=== PATIENT | male | born 1960 | race Caucasian/White ===

== ENCOUNTER 2016-05-18 10:27 | Emergency (ER) | payer OTHER ==
--- NOTE | 2016-05-18 11:32 | PROVIDER DOCUMENTATION ---
HPI-Abdominal Pain/GI Problem - General Chief Complaint: Abdominal Pain Stated Complaint: L Side Abdominal Pain Time Seen by Provider: 05/18/16 10:37 Source: patient Allergies/Adverse Reactions: Patient Allergies Allergy/AdvReac Type Severity Reaction Status Date / Time diphenhydramine HCl * Allergy Mild HIVES Verified 05/18/16 11:03 [From Benadryl] codeine [Codeine] AdvReac Mild NAUSEA Verified 05/18/16 11:03 Home Medications: Home Medication List Medication Instructions Recorded Confirmed Last Taken Type Lisinopril/Hydrochlorothiazide 1 tab PO DAILY 10/20/13 01/25/16 01/25/16 08:00 History [Lisinopril-Hctz 20-25 mg Tab] Omeprazole [Prilosec] 1 cap PO DAILY 11/14/14 01/25/16 01/25/16 08:00 History Potassium Chloride E.r. [Klor-Con] 10 meq PO BID 11/14/14 01/25/16 01/25/16 08: 00 History Tamsulosin [Flomax] 0.4 mg PO QHS 06/24/15 01/25/16 01/24/16 20:00 History Escitalopram [Lexapro] 1 tab PO DAILY 09/11/15 01/25/16 01/25/16 08:00 History Trazodone [Desyrel] 1 tab PO HS 09/11/15 01/25/16 01/24/16 20:00 History ATORVAstatin [Lipitor] 20 mg PO DAILY #120 tablet 11/26/15 01/25/16 01/25/16 08: 00 Rx Aspirin 81 mg PO DAILY #120 chewtab 11/26/15 01/25/16 01/25/16 08:00 Rx Fenofibrate [Tricor] 145 mg PO DAILY #120 tablet 11/26/15 01/25/16 01/25/16 08: 00 Rx Gabapentin [Neurontin] 100 mg PO BID #120 capsule 11/26/15 01/25/16 01/25/16 08: 00 Rx Dicyclomine HCl [Bentyl] 20 mg PO DAILY #30 tablet 01/06/16 01/25/16 01/25/16 08 :00 Rx Cyclobenzaprine [Flexeril] 10 mg PO TID #20 tablet 01/25/16 Unknown Rx Meloxicam [Mobic] 7.5 mg PO DAILY PRN PRN #15 tablet 01/25/16 Unknown Rx Dicyclomine [Bentyl] 10 mg PO 4XDAY #30 capsule 05/18/16 Unknown Rx Ondansetron Odt [Zofran 8Mg Odt] 8 mg PO Q8H PRN PRN #20 tablet 05/18/16 Unknown Rx Promethazine [Phenergan] 25 mg PO Q6H PRN PRN #20 tablet 05/18/16 Unknown Rx - History of Present Illness-ABD Nature of Presenting Problems: 56 y/o WM in the ED with c/o L side pain secondary to hernia. Pt has this pain frequently, states worse when he is active. Denies any new sxs. Reports N/V periodically over last 2 days. Pt has colostomy in LLQ. States has seen Dr. Davidson about one month ago for recheck of colon CA and resection. Pt has had hernia in LLQ for approx. 5 years since colon resection. Asking what he can take for pain. Pt does not appear in acute distress. Review of Systems - Adult - REVIEW OF SYSTEMS - ADULT Constitutional: reports: no symptoms reported. denies: chills, fever Eyes: reports: no symptoms reported. denies: blurred vision, double vision Ears, Nose, Mouth & Throat: reports: no symptoms reported. denies: ear pain, nose pain Cardiovascular: reports: no symptoms reported. denies: chest pain, palpitations Respiratory: reports: no symptoms reported. denies: dyspnea on exertion, shortness of breath Gastrointestinal: reports: see HPI, abdominal pain, nausea, vomiting. denies: constipation, diarrhea Genitourinary: reports: no symptoms reported. denies: dysuria, frequency Musculoskeletal: reports: no symptoms reported. denies: joint pain, joint swelling Integumentary: reports: no symptoms reported. denies: nail changes, rash Neurological: reports: no symptoms reported. denies: numbness, paresthesia Psychiatric: reports: no symptoms reported Endocrine: reports: no symptoms reported. denies: cold intolerance, heat intolerance Hematologic/Lymphatic: reports: no symptoms reported. denies: easy bruising, prolonged bleeding Allergic/Immunologic: reports: no symptoms reported All Other Systems: Reviewed and Negative Past History - Adult - PAST MEDICAL HISTORY-ADULT Review of Records: reports: Nursing Assessment Review, Medications Reviewed Major Childhood Illnesses: reports: denies history Cardiovascular: reports: HTN, hyperlipidemia Respiratory: reports: denies history Gastrointestinal: reports: GERD, other (rectal CA) Genitourinary: reports: kidney disease Musculoskeletal: reports: denies history Neurological: reports: denies history Psychiatric: reports: depression Endocrine/Immune: reports: denies history Other Conditions: reports: denies history Additional History: HTN, GERD, depression, hx of colon ca - PRIOR SURGERIES/PROCEDURES Surgical/Procedure History: reports: bowel surgery (colostomy) - IMMUNIZATION STATUS Childhood Immunizations: See Nurse Assessment Flu Vaccine: See Nurse Assessment - FAMILY HISTORY Family History: reviewed, not pertinent - SOCIAL HISTORY Smoking: quit greater than 1 year Physical Exam-General - PHYSICAL EXAM-ADULT Initial Vital Signs Reviewed: Yes - CONSTITUTIONAL General Appearance: alert, no apparent distress - EYES Eyes: pink conjunctivae - HEAD, EARS, NOSE, MOUTH & THROAT HENMT: normocephalic/atraumatic, moist mucous membranes - NECK Neck: normal inspection - RESPIRATORY Respiratory: lungs clear, normal breath sounds. negative: crackles, rales, rhonchi, stridor, wheezing - CARDIOVASCULAR Cardiovascular: regular rate, rhythm. negative: bradycardia, tachycardia - GASTROINTESTINAL (ABDOMEN) Abdominal Exam: normal bowel sounds, soft, tenderness (mild), hernia (LLQ, lateral to colostomy). negative: distended, guarding, rigid, rebound, McBurney' s point tenderness, Dempsey's sign - MUSCULOSKELETAL Back Exam: normal inspection, no CVA tenderness Extremity: normal gait - SKIN Integumentary: normal color, normal turgor, warm/dry - NEUROLOGIC Neurologic: negative: aphasia - PSYCHIATRIC Psych/Mental Status: normal mood/affect, normal thought content, normal thought process, oriented x 3 Progress - PLAN OF CARE/RESULTS Progress/Plan/Lab Results: Discussed pt with Dr. Banuelos; he agreed with d/c home and did not advise pain medications. Discussed results and f/u with pt. - XRAY 1 XRAY Study: Chest, Abdomen Impression: See EMR Report (No acute disease, per Dr. Arriola) Departure - Departure Time of Disposition Order: 12:15 DIAGNOSIS: Hernia Abdominal pain Qualifiers: Abdominal location: left lower quadrant Qualified Code(s): R10.32 - Left lower quadrant pain Vomiting Qualifiers: Vomiting type: unspecified Vomiting Intractability: non-intractable Nausea presence: unspecified Qualified Code(s): R11.10 - Vomiting, unspecified Disposition: HOME 01 Certified Medical Emergency: Emergent Condition: Stable Additional Instructions: Take medications as directed. Follow up with PCP/specialist for further management. Return if symptoms get worse. ED Follow Up Instructions: You have been treated by a care provider in the Emergency Department. These instructions are being provided to you so you can have an understanding of how to care for yourself upon discharge. Upon discharge from the Emergency Department, you are responsible for making arrangements for follow-up care by a physician of your choice. Take all prescribed medications as directed. Return to the Emergency Department immediately for any new or worsening symptoms. You may call the Physician Referral phone number at [phone] to obtain a list of Physicians who are taking new patients. Prescriptions: Dicyclomine [Bentyl] 10 mg PO 4XDAY #30 capsule Promethazine [Phenergan] 25 mg PO Q6H PRN PRN #20 tablet PRN Reason: Nausea Ondansetron Odt [Zofran 8Mg Odt] 8 mg PO Q8H PRN PRN #20 tablet PRN Reason: Nausea Referrals: None,PCP [Primary Care Provider] - Merlin Molina MD [STAFF PHYSICIAN] - Attestation - Physician/ TAMIKA Attestation Patient care was provided by Advanced Practice Provider:: Yes Advanced Practice Provider:: Yudy Grigsby Advanced Practice Provider documentation review:: The Mid-level provider documentation, treatment plan and medical decision making was reviewed by the physician who agrees with all treatment and medical decision making by the P.
[2016-05-18 11:39] LABS: MANUAL DIFF NEEDED? NO
[2016-05-18 11:39] LABS: URINE CULTURE NEEDED? NO; URINE MICRO REVIEW NEEDED? NO; URINE SOURCE CLEAN CATCH
[2016-05-18 11:41] LABS: EOS# 0.07 X1000 (0.0-0.7); EOS% 1.8 % (0.0-10.0); HEMOGLOBIN 12.5 g/dL (14.0-18.0); IMM GRAN# 0.02 X1000 (0.0-0.04); IMM GRAN% 0.5 % (0.0-0.5); LYMPH# 0.84 X1000 (1.2-3.4); LYMPH% 21.6 % (20.5-51.1); MCH 29.7 PG (27-31); MCHC 34.7 g/dL (33-37); MCV 85.5 FL (81-99); MONO% 7.7 % (1.7-9.3); MPV 9.2 FL (7.4-10.4); NEUT% 68.4 % (42.2-75.2); PLT 217 X1000 (130-400); RBC 4.21 XMIL (4.7-6.1)
[2016-05-18 11:46] LABS: BILIRUBIN URINE NEGATIVE (NEGATIVE); BLOOD URINE NEGATIVE (NEGATIVE); COLOR YELLOW; GLUCOSE URINE NEGATIVE (NEGATIVE); LEUKOCYTES URINE NEGATIVE (NEGATIVE); NITRITE URINE NEGATIVE (NEGATIVE); PH URINE 7.5; PROTEIN URINE NEGATIVE (NEGATIVE); SP GRAVITY URINE 1.017; TURBIDITY URINE CLEAR (CLEAR); UROBILINOGEN URINE NORMAL (NORMAL)
[2016-05-18 11:49] LABS: UR EPITHELIAL CELLS <10 /HPF (<10); URINE BACTERIA NEGATIVE /HPF; URINE RBC <10 /HPF (<10); URINE WBC <10 /HPF (<10)
[2016-05-18 12:08] LABS: AGAP 12; ALKALINE PHOSPHATASE 109 U/L (32-122); AMYLASE 39 U/L (20-200); BUN 15 mg/dL (8-22); CALCIUM 9.5 mg/dL (8.8-10.2); CHLORIDE 101 mmol/L (98-107); COSMO 284; GOT 40 U/L (10-34); GPT 58 U/L (10-44); LIPASE 34 U/L (13-60); POTASSIUM 3.5 mmol/L (3.5-5.1); SODIUM 142 mmol/L (136-145); TCO2 29 mmol/L (25-35); TOTAL BILIRUBIN 0.43 mg/dL (0.20-1.00)
[2016-05-18] MEDS ORDERED: NS 1,000 ML IV ONE (12:33)
[2016-05-18] MEDS ORDERED: ZOFRAN IV ONE (12:33)
--- NOTE | 2016-05-18 13:17 | Diag Imaging Result Document ---
PROCEDURE NAME: FLAT/UPRIGHT ABD/1 VIEW CHEST - 05/18/2016 FRONTAL CHEST X-RAY AND 2 VIEWS OF THE ABDOMEN: COMPARISON: 01/06/2016. FINDINGS: Stable surgical clips at the central pelvis projecting over the sacrum. No bowel obstruction or free air. There is an average quantity of stool throughout the colon. IMPRESSION: No acute disease or change from prior.
[2016-05-18 13:52] VITALS: BP 159/81
== END 2016-05-18 13:52 | disposition home or self-care (01) ==
LOC: EDBD → ED 10:27
DX: K46.9 Unspecified abdominal hernia without obstruction or gangrene (principal); R10.32 Left lower quadrant pain; R11.2 Nausea with vomiting, unspecified; I10 Essential (primary) hypertension; E78.5 Hyperlipidemia, unspecified; K21.9 Gastro-esophageal reflux disease without esophagitis; Z85.048 Personal history of other malignant neoplasm of rectum, rectosigmoid junction, and anus; F32.9 Major depressive disorder, single episode, unspecified; Z79.899 Other long term (current) drug therapy; Z93.3 Colostomy status; Z87.891 Personal history of nicotine dependence; Z79.1 Long term (current) use of non-steroidal anti-inflammatories (NSAID); Z79.82 Long term (current) use of aspirin
CPT/HCPCS: 74022; 80053; 81001; 82150; 83690; 85025; 96374; J2405; J7030

== ENCOUNTER 2019-02-10 06:57 | Inpatient (IN) ==
[2019-02-10] MEDS ORDERED: TORADOL IV ONE (07:21)
[2019-02-10] MEDS ORDERED: NS 1,000 ML IV ONE ×2 (07:21→09:54)
[2019-02-10] MEDS ORDERED: ZOFRAN IV ONE (07:21)
[2019-02-10] MEDS ORDERED: STERILE WATER INJ. INJ ONE (07:56)
[2019-02-10] MEDS ORDERED: GEODON IM ONE (07:56)
[2019-02-10 08:00] LABS: URINE SOURCE CLEAN CATCH
[2019-02-10 08:14] LABS: UR AMPHETAMINES QUAL NONE DETECTED (NONE DETECT); UR BARBITUATES QUAL NONE DETECTED (NONE DETECT); UR BENZODIAZEPIN QUAL NONE DETECTED (NONE DETECT); UR CANNABINOIDS QUAL NONE DETECTED (NONE DETECT); UR COCAINE QUAL NONE DETECTED (NONE DETECT); UR METHADONE QUAL NONE DETECTED (NONE DETECT); UR OPIATES QUAL NONE DETECTED (NONE DETECT); UR OXYCODONE QUAL NONE DETECTED (NONE DETECT); UR PCP QUAL NONE DETECTED (NONE DETECT)
[2019-02-10 08:18] LABS: BILIRUBIN URINE SMALL (NEGATIVE); BLOOD URINE NEGATIVE (NEGATIVE); COLOR YELLOW; GLUCOSE URINE NEGATIVE (NEGATIVE); KETONE URINE NEGATIVE (NEGATIVE); LEUKOCYTES URINE NEGATIVE (NEGATIVE); NITRITE URINE NEGATIVE (NEGATIVE); PROTEIN URINE TRACE mg/dL (NEGATIVE); SP GRAVITY URINE 1.014; TURBIDITY URINE CLEAR (CLEAR); UROBILINOGEN URINE 2 mg/dL (NORMAL)
[2019-02-10 08:24] LABS: AGAP 18; BASO# 0.01 X1000 (0.0-0.2); BASO% 0.1 % (0.0-0.8); CHLORIDE 95 mmol/L (98-107); EOS# 0.45 X1000 (0.0-0.7); EOS% 3.7 % (0.0-10.0); GLUCOSE 146 mg/dL (70-104); HEMATOCRIT 38.9 % (42.0-52.0); HEMOGLOBIN 12.4 g/dL (14.0-18.0); IMM GRAN# 0.03 X1000 (0.0-0.04); IMM GRAN% 0.2 % (0.0-0.5); LYMPH# 0.61 X1000 (1.2-3.4); MCH 27.9 PG (27-31); MCHC 31.9 g/dL (33-37); MCV 87.4 FL (81-99); MONO# 0.52 X1000 (0.11-0.59); MONO% 4.3 % (1.7-9.3); MPV 9.5 FL (7.4-10.4); NEUT# 10.54 X1000 (1.4-6.5); NEUT% 86.7 % (42.2-75.2); PLT 317 X1000 (130-400); POTASSIUM 2.8 mmol/L (3.5-5.1); RBC 4.45 XMIL (4.7-6.1); RDW 13.8 % (11.5-14.5); SODIUM 139 mmol/L (136-145); TCO2 26 mmol/L (25-35); UR EPITHELIAL CELLS <10 /HPF (<10); URINE BACTERIA NEGATIVE /HPF; URINE RBC <10 /HPF (<10); URINE WBC <10 /HPF (<10); WBC 12.16 X1000 (4.8-10.8)
[2019-02-10 08:25] LABS: ALB/GLOB RATIO 1.1; ALKALINE PHOSPHATASE 620 U/L (32-122); BUN 22 mg/dL (8-22); CALCIUM 9.8 mg/dL (8.8-10.2); COSMO 284; CREATININE 0.7 mg/dL (0.7-1.2); ESTIMATED GFR > 60; GOT 445 U/L (10-34); GPT 525 U/L (10-44); TOTAL BILIRUBIN 4.87 mg/dL (0.20-1.00); TOTAL PROTEIN 7.6 g/dL (6.3-8.3)
[2019-02-10 08:32] LABS: LIPASE > 3000 U/L (13-60)
[2019-02-10 08:34] LABS: URINE CASTS NONE SEEN
[2019-02-10] MEDS ORDERED: LEVAQUIN 750 MG/D5W 750 MG/150 ML IVPB IV ONE (09:39)
[2019-02-10] MEDS ORDERED: FLAGYL 500 MG/NS 500 MG/100 ML IVPB IV ONE (09:39)
--- NOTE | 2019-02-10 09:41 | Diag Imaging Result Doc PS360 ---
EXAM: CT ABD/PELVIS W/IV CONT ONLY - 02/10/2019 HISTORY: vomiting and no abdominal pain TECHNIQUE: CT abdomen/pelvis with intravenous contrast COMPARISON: 01/13/2019 FINDINGS: The gallbladder is distended. There are multiple small calcified gallstones in the gallbladder. Possible gallstones layer dependently. There are couple small gallstones in the gallbladder neck. The calhoun appear mildly thickened with hazy external margins. There is apparent mild pericholecystic inflammation. There is biliary ductal dilatation. There are small gallstones at the distal common bile duct/ampulla of Vater. There is no pancreatic mass or pancreatic inflammation identified. There is hazy subsegmental atelectasis at the lung bases. There are no other substantial abnormalities of the liver, spleen, or adrenal glands identified. The bilateral kidneys enhance homogeneously. There is mild cortical thinning/scarring at the upper left kidney. There is no substantial hydronephrosis. There are nonspecific small retroperitoneal lymph nodes. There are postsurgical changes of distal colectomy/proctectomy with left lower quadrant colostomy. There are some retained fluid and stomach and small bowel. There is no indication of bowel obstruction. The appendix is retrocecal in location and shows no definite inflammation. There is scarring in the mesentery/fat at the lateral right midabdomen similar to prior. There is no free air or gas containing abscess identified. There is presacral soft tissue thickening/scarring appears stable. The fluid containing lesion at the right buttock which was seen on the prior exam is less prominent and no longer discretely identified per se, although there is some residual soft tissue thickening at this location. IMPRESSION: Distended gallbladder and biliary ductal dilatation. Small calcified gallstones in gallbladder and at distal common bile duct/ampulla of Vater. Mildly thickened gallbladder calhoun with hazy external margins and mild pericholecystic inflammation. Acute cholecystitis cannot be excluded. Mild ileus versus gastroenteritis. No obvious appendicitis. Stable presacral soft tissue thickening/scarring. Resolution or near resolution of the previously identified fluid containing lesion at the right. There is some residual soft tissue thickening in this area. This exam was performed using automated exposure control, adjustment of mA or kV according to patient size, and/or use of iterative reconstruction technique. This report was discussed with Dr. Schmidt on 02/10/2019 at 9:38 AM and was readback. Electronically signed by Anil Casillas 02/10/2019 9:38 AM
--- NOTE | 2019-02-10 09:42 | PROVIDER DOCUMENTATION ---
HPI-Abdominal Pain/GI Problem - General Chief Complaint: Psych-High Risk Stated Complaint: vomiting Time Seen by Provider: 02/10/19 07:04 Source: patient, EMS, old records Allergies/Adverse Reactions: Patient Allergies Allergy/AdvReac Type Severity Reaction Status Date / Time Penicillins Allergy Severe NAUSEA Verified 02/10/19 07:31 diphenhydramine HCl * Allergy Mild HIVES Verified 02/10/19 07:31 [From Benadryl] codeine [Codeine] AdvReac Mild NAUSEA Verified 02/10/19 07:31 Home Medications: Home Medication List Medication Instructions Recorded Confirmed Last Taken Type Omeprazole [Prilosec] 40 mg PO DAILY 12/15/18 02/03/19 01/13/19 History Potassium Chloride 10 meq PO DAILY 12/15/18 02/03/19 01/13/19 History Tamsulosin [Flomax] 0.4 mg PO DAILY 12/15/18 02/03/19 1 Day Ago History ~01/12/19 Cholecalciferol (Vit D3) [Vitamin 2,000 unit PO DAILY #60 tab 12/21/18 02/03/19 01/13/19 Rx D3] Albuterol Sulfate Inhaler 2 puff INH Q6H PRN PRN #1 inhaler 01/30/19 02/03/19 Unknown Rx [Ventolin Hfa] Albuterol Sulfate Inhaler 2 puff INH Q6H PRN PRN #1 inhaler 02/03/19 Unknown Rx [Ventolin Hfa] Methylprednisolone [Medrol Dosepak] 4 mg PO DIRECTED #1 pkg 02/03/19 Unknown Rx - History of Present Illness-ABD Nature of Presenting Problems: Abdominal pain, n/v, passing out for the last couple of days. Patient is a well known visitor to this ED with extensive psychiatric history, called 911 d/t abd pain. En route, vomited twice after eating chili last night. States he hurts so bad he wants to . Also states that he is a cat and meows like a cat. Patient states he can't get comfortable. Abdominal Pain Onset Location: reports: RUQ, epigastric Pain Radiation: reports: no radiation Quality of Pain: reports: aching, stabbing Severity in ED: reports: severe Onset/Duration: reports: 2 days ago Timing: reports: still present, constant, changing over time, getting worse Activities at Onset: reports: none Exposure to sick contacts?: No Modifying Factors: improves with: vomiting. worse with: eating, movement Associated Symptoms: reports: anxiety, diaphoresis, dizziness, loss of appetite, malaise, nausea, vomiting, weakness Last BM: unsure Dark Stools Present?: reports: none noticed Rectal Bleeding: reports: none Emesis Description: reports: other (food x 3) Bruising or Bleeding Gums?: No Similar Symptoms Previously?: No Recently seen or treated by another doctor?: Yes (here few days ago for SOB) Review of Systems - Adult - REVIEW OF SYSTEMS - ADULT Constitutional: reports: no symptoms reported Eyes: reports: no symptoms reported Ears, Nose, Mouth & Throat: reports: no symptoms reported Cardiovascular: reports: no symptoms reported Respiratory: reports: no symptoms reported Gastrointestinal: reports: see HPI, abdominal pain, hematemesis, constipation (x 2 days), nausea, poor appetite, vomiting Genitourinary: reports: no symptoms reported Musculoskeletal: reports: no symptoms reported Integumentary: reports: no symptoms reported Neurological: reports: no symptoms reported Psychiatric: reports: see HPI, anxiety, depression, emotional problems, insomnia , panic attacks, suicidal thoughts, other (delusional behavior.) Endocrine: reports: no symptoms reported Hematologic/Lymphatic: reports: no symptoms reported Allergic/Immunologic: reports: no symptoms reported All Other Systems: Reviewed and Negative Past History - Adult - PAST MEDICAL HISTORY-ADULT Review of Records: reports: Old Records Reviewed, Nursing Assessment Review, Medications Reviewed, Social history reviewed & non-contributory. Major Childhood Illnesses: reports: history unknown Cardiovascular: reports: HTN, hyperlipidemia Respiratory: reports: denies history Gastrointestinal: reports: cancer, GERD, other (rectal CA- in remission, not currently on chemo or radiation) Obstetrical/Gynecological: reports: denies history, - spont/elective Genitourinary: reports: kidney disease Musculoskeletal: reports: denies history Neurological: reports: denies history Psychiatric: reports: anxiety, bipolar, depression, psychiatric problems, suicide attempt Endocrine/Immune: reports: denies history Other Conditions: reports: denies history, other cancer (rectal/colon) Additional History: HTN, GERD, depression, hx of colon ca - PRIOR SURGERIES/PROCEDURES Surgical/Procedure History: reports: bowel surgery (colostomy), orthopedic (extremity) (right pinky, left knee) - IMMUNIZATION STATUS Childhood Immunizations: See Nurse Assessment Flu Vaccine: See Nurse Assessment - FAMILY HISTORY Family History: reviewed, not pertinent - SOCIAL HISTORY Smoking: cigarettes, greater than 1 pack/day Provider spent 3-5 mins advising pt. on dangers of tobacco.: Discussed manners to quit use, and f/u contacts for add'l counseling. Substance Use: none presently/history of abuse Alcohol Use Frequency: occasionally Living Situation: family Physical Exam-General - PHYSICAL EXAM-ADULT Initial Vital Signs Reviewed: Yes (VSSAF) - CONSTITUTIONAL General Appearance: appears well, alert, mild distress, anxious - EYES Eyes: PERRL/EOMI, pink conjunctivae - HEAD, EARS, NOSE, MOUTH & THROAT HENMT: normocephalic/atraumatic, pharynx normal. negative: moist mucous membranes (dry) - NECK Neck: non-tender, full range of motion, supple, normal inspection - RESPIRATORY Respiratory: chest non-tender, lungs clear, normal breath sounds, no pleuratic c hest pain, no respiratory distress, no accessory muscle use - CARDIOVASCULAR Cardiovascular: normal peripheral pulses, regular rate, rhythm, no edema, no gallop, no JVD, no murmur - GASTROINTESTINAL (ABDOMEN) Abdominal Exam: no organomegaly, no pulsatile mass, guarding (epigastrum/RUQ), tenderness (epigastrum/RUQ), Dempsey's sign, other (colostomy LLQ with brown liquid stool and gas present). negative: rigid, rebound, McBurney's point tenderness - LYMPHATIC Lymphatic: no adenopathy - MUSCULOSKELETAL Back Exam: normal inspection, no CVA tenderness, no vertebral tenderness Extremity: normal range of motion, non-tender, normal gait, normal inspection, no pedal edema, no calf tenderness - SKIN Integumentary: normal color, normal turgor, warm/dry - NEUROLOGIC Neurologic: annual giving officer II-XII nml as tested, grossly normal, no motor/sensory deficits - PSYCHIATRIC Psych/Mental Status: disoriented x 3, anxious, disheveled, other (meowing like a cat, throws self on floor.) Progress - PLAN OF CARE/RESULTS Progress/Plan/Lab Results: Vital Signs - 8 hr 02/10/19 07:03 Temperature 97.5 F L Pulse Rate 87 Respiratory Rate 15 Blood Pressure 144/77 O2 Sat by Pulse Oximetry 97 02/10/19 07:49 Influenza Screen - Final Nasopharyngeal Laboratory Results - last 24 hr 02/10/19 02/10/19 02/10/19 07:49 07:49 07:49 WBC 12.16 H RBC 4.45 L Hgb 12.4 L Hct 38.9 L MCV 87.4 MCH 27.9 MCHC 31.9 L RDW Std Deviation 13.8 Plt Count 317 MPV 9.5 Immature Gran % (Auto) 0.2 Neut % (Auto) 86.7 H Lymph % (Auto) 5.0 L [place] % (Auto) 4.3 Eos % (Auto) 3.7 Baso % (Auto) 0.1 Immature Gran # (Auto) 0.03 Neut # (Auto) 10.54 H Lymph # (Auto) 0.61 L [place]ward # (Auto) 0.52 Eos # (Auto) 0.45 Baso # (Auto) 0.01 Sodium 139 Potassium 2.8 L Chloride 95 L Carbon Dioxide 26 Anion Gap 18 BUN 22 Creatinine 0.7 Estimated GFR/1.73 m2 > 60 BUN/Creatinine Ratio 31 Glucose 146 H Calculated Osmolality 284 Calcium 9.8 Total Bilirubin 4.87 H AST 445 H ALT 525 H Alkaline Phosphatase 620 H Total Protein 7.6 Albumin 4.0 Globulin 3.6 Albumin/Globulin Ratio 1.1 Lipase > 3000 H TSH Urine Source Urine Color Urine Turbidity Urine pH Ur Specific Cove Urine Protein Ur Glucose (Stick) Ur Ketones (Stick) Urine Blood Urine Nitrite Urine Bilirubin Urobilinogen Dipstick Urine Leukocytes Urine WBC (Auto) Urine RBC (Auto) U Epithel Cells (Auto) Urine Bacteria (Auto) Urine Crystals Small Round Cells Urine Casts Urine Yeast-like Cells Salicylates Urine Opiates Screen Ur Oxycodone Screen Ur Methadone, Qual Acetaminophen Ur Barbiturates Screen Ur Phencyclidine Scrn Ur Amphetamines Screen U Benzodiazepines Scrn Urine Cocaine Screen U Cannabinoids Screen Plasma/Serum Ethyl Alc 02/10/19 02/10/19 02/10/19 07:49 07:49 07:49 WBC RBC Hgb Hct MCV MCH MCHC RDW Std Deviation Plt Count MPV Immature Gran % (Auto) Neut % (Auto) Lymph % (Auto) Woodward % (Auto) Eos % (Auto) Baso % (Auto) Immature Gran # (Auto) Neut # (Auto) Lymph # (Auto) Woodward # (Auto) Eos # (Auto) Baso # (Auto) Sodium Potassium Chloride Carbon Dioxide Anion Gap BUN Creatinine Estimated GFR/1.73 m2 BUN/Creatinine Ratio Glucose Calculated Osmolality Calcium Total Bilirubin AST ALT Alkaline Phosphatase Total Protein Albumin Globulin Albumin/Globulin Ratio Lipase TSH Urine Source CLEAN CATCH Urine Color YELLOW Urine Turbidity CLEAR Urine pH 7.0 Ur Specific Cove 1.014 Urine Protein TRACE A Ur Glucose (Stick) NEGATIVE Ur Ketones (Stick) NEGATIVE Urine Blood NEGATIVE Urine Nitrite NEGATIVE Urine Bilirubin SMALL A Urobilinogen Dipstick 2 A Urine Leukocytes NEGATIVE Urine WBC (Auto) <10 Urine RBC (Auto) <10 U Epithel Cells (Auto) <10 Urine Bacteria (Auto) NEGATIVE Urine Crystals Not Reportable Small Round Cells Not Reportable Urine Casts NONE SEEN Urine Yeast-like Cells Not Reportable Salicylates < 3.00 L Urine Opiates Screen NONE DETECTED Ur Oxycodone Screen NONE DETECTED Ur Methadone, Qual NONE DETECTED Acetaminophen Ur Barbiturates Screen NONE DETECTED Ur Phencyclidine Scrn NONE DETECTED Ur Amphetamines Screen NONE DETECTED U Benzodiazepines Scrn NONE DETECTED Urine Cocaine Screen NONE DETECTED U Cannabinoids Screen NONE DETECTED Plasma/Serum Ethyl Alc 02/10/19 02/10/19 07:49 07:49 WBC RBC Hgb Hct MCV MCH MCHC RDW Std Deviation Plt Count MPV Immature Gran % (Auto) Neut % (Auto) Lymph % (Auto) Woodward % (Auto) Eos % (Auto) Baso % (Auto) Immature Gran # (Auto) Neut # (Auto) Lymph # (Auto) Woodward # (Auto) Eos # (Auto) Baso # (Auto) Sodium Potassium Chloride Carbon Dioxide Anion Gap BUN Creatinine Estimated GFR/1.73 m2 BUN/Creatinine Ratio Glucose Calculated Osmolality Calcium Total Bilirubin AST ALT Alkaline Phosphatase Total Protein Albumin Globulin Albumin/Globulin Ratio Lipase TSH 1.23 Urine Source Urine Color Urine Turbidity Urine pH Ur Specific Cove Urine Protein Ur Glucose (Stick) Ur Ketones (Stick) Urine Blood Urine Nitrite Urine Bilirubin Urobilinogen Dipstick Urine Leukocytes Urine WBC (Auto) Urine RBC (Auto) U Epithel Cells (Auto) Urine Bacteria (Auto) Urine Crystals Small Round Cells Urine Casts Urine Yeast-like Cells Salicylates Urine Opiates Screen Ur Oxycodone Screen Ur Methadone, Qual Acetaminophen 1.4 L Ur Barbiturates Screen Ur Phencyclidine Scrn Ur Amphetamines Screen U Benzodiazepines Scrn Urine Cocaine Screen U Cannabinoids Screen Plasma/Serum Ethyl Alc Orders Category Date Time Status Nursing- Obtain EKG once Care 02/10/19 07:56 Active Saline Loc NOW Care 02/10/19 07:19 Active CHEST-PORTABLE [RAD] Stat Exams 02/10/19 07:[address] ABD/PELVIS W/IV CONT ONLY [CT] Stat Exams 02/10/19 07:20 Taken ACETAMINOPHEN [TDM] Stat Lab 02/10/19 07:49 Completed ALCOHOL BLOOD Stat Lab 02/10/19 07:49 Completed BLOOD CULTURE [BLDCUL] Stat Lab 02/10/19 09:38 Uncollected CBC WITH ELECTRONIC DIFF [HEME] Stat Lab 02/10/19 07:49 Completed COMPREHENSIVE METABOLIC PANEL [CHEM] Stat Lab 02/10/19 07:49 Completed INFLUENZA SCREEN A/B Stat Lab 02/10/19 07:49 Completed LACTATE, PLASMA [CHEM] Stat Lab 02/10/19 09:39 Uncollected LIPASE [CHEM] Stat Lab 02/10/19 07:49 Completed SALICYLATES [TDM] Stat Lab 02/10/19 07:49 Completed TSH Stat Lab 02/10/19 07:49 Completed URINALYSIS W/POSS RFLX CULT [URINALYSIS] Stat Lab 02/10/19 07:49 Completed URINE DRUG SCREEN Stat Lab 02/10/19 07:49 Completed URINE MANUAL MICROSCOPIC [URINALYSIS] Stat Lab 02/10/19 07:49 Completed 0.9% Sodium Chloride Inj [Ns] 1,000 ml Med 02/10/19 07:21 Discontinued IV 999 mls/hr Ketorolac [Toradol] Med 02/10/19 07:21 Discontinued 30 mg IV NOW ONE Levofloxacin 750 mg/D5w [Levaquin 750 mg/D5w] Med 02/10/19 09:39 Active 750 mg in 150 ml IV NOW Metronidazole 500 mg/Ns [Flagyl 500 mg/Ns] Med 02/10/19 09:39 Active 500 mg in 100 ml IV NOW Ondansetron [Zofran] Med 02/10/19 07:21 Discontinued 4 mg IV NOW ONE Water, Sterile Inj [Sterile Water Inj.] Med 02/10/19 07:56 Discontinued 1.2 ml INJ NOW ONE Ziprasidone [Geodon] Med 02/10/19 07:56 Discontinued 20 mg IM NOW ONE EKG [EKG] Stat Ther 02/10/19 07:57 Ordered Result Diagrams: 02/10/19 07:49 02/10/19 07:49 - REASSESSMENT Reassessment #1 Time Reassessed: 10:02 Status: improving (Patient required Geodon sedation to stay in bed and obtain studies. Patient given IV levaquin and flagyl as he is PCN allergic. Old chart reviewed.) - EKG 1 Time of EKG reading by physician:: 10:04 EKG Read and Signed by:: Alonso Schmidt EKG Interpretation (*Must complete 3 of following elements*): Abnormal Rate: 76 Rhythm: nsr [place]: normal QRS: other (early transition) SD Interval: normal ST Wave: non-specific ST changes Prior EKG Comparison: unchanged from prior - CONSULTS/PCP/HOSPITALIST Notification #1 *Consult/PCP/Hospitalist*: figh Time Discussed: 09:42 (admit to hospitalist, will see) #2 Consult: Debbie KRAUSE paged at [phone] Time Discussed: 09:54 Consult Disposition: Will see in ED, Admit Departure - Departure Date of Disposition Decision: 02/10/19 Time of Disposition Decision: 09:54 DIAGNOSIS: Choledocholithiasis with acute cholecystitis with obstruction, Schizoaffective disorder, bipolar type Biliary acute pancreatitis Qualifiers: Acute pancreatitis complication: unspecified Qualified Code(s): K85.10 - Biliary acute pancreatitis without necrosis or infection Disposition: ADMITTED INPATIENT 09 Certified Medical Emergency: Emergent Condition: Fair Referrals and Follow-Ups: None,PCP [Primary Care Provider] - - Critical Care Note This patient required my direct & personal management of CC.: Yes Total Time (mins): 45 (sedation for BPDO/agitation, treatment of significant abd catastatrophe, mult provider consults, review of old records.) Critical Care Statement: This patient required my direct personal management to treat or rule out processes, the absence of which, could potentiallly result in sudden, clinically significant life or limb threatening deterioration. Attestation - Physician/ TAMIKA Attestation Patient care was provided by Advanced Practice Provider:: No The physician spent face to face time with patient:: Yes Advanced Practice Provider documentation review:: Supervising physician onsite and consulted in the evaluation and care of this patient. The physician did have a face to face encounter with the patient.
--- NOTE | 2019-02-10 10:44 | Diag Imaging Result Doc PS360 ---
EXAM: CHEST-PORTABLE - 02/10/2019 HISTORY: vomiting TECHNIQUE: Portable chest COMPARISON: 02/03/2019 FINDINGS: Heart size appears borderline enlarged and stable. The lungs appear clear except for mild basilar subsegmental atelectasis. There is no pleural effusion or pneumothorax identified. IMPRESSION: Stable borderline cardiomegaly. Mild basilar subsegmental atelectasis. No other evidence of acute disease. Electronically signed by nAil Casillas 02/10/2019 10:41 AM
[2019-02-10] MEDS ORDERED: ZOFRAN IV PRN (11:02)
[2019-02-10] MEDS ORDERED: DUONEB (A & A) INH PRN (11:02)
[2019-02-10] MEDS ORDERED: POTASSIUM CHLORIDE 40 MEQ/SWI 40 MEQ/100 ML IVPB IV ONE (12:27)
[2019-02-10] MEDS: POTASSIUM CHLORIDE 20 MEQ/SWI 20 MEQ/100 ML IVPB IV SCH ×2 (14:20→16:48)
--- NOTE | 2019-02-10 14:35 | HISTORY AND PHYSICAL ---
PRIMARY CARE PROVIDER: Yefri Constantino MD. CHIEF COMPLAINT: Abdominal pain with nausea and vomiting. HISTORY OF PRESENT ILLNESS: Mr. Daron Omalley is a 58-year-old male with a medical history of hyperlipidemia, hypertension, BPH, colon cancer with colostomy, and emphysema along with history of psychiatric conditions consistent with schizoaffective disorder, bipolar type, who was brought in by EMS saying that he was vomiting at home and vomited in the ambulance on the ride here. During evaluation, it was noted that he had a jaundice appearance, even though he was quite agitated. Given the abdominal pain in the nausea and vomiting he was experiencing despite his psychiatric issue at this time, an abdominal and pelvic CT was performed which revealed a distended gallbladder and biliary dilatation and also showed small calcified gallstones in the gallbladder and distal common bile duct. There were mildly thickened gallbladder calhoun with hazy external margins and mild pericholecystic inflammation revealing acute cholecystitis. Might have been a mild ileus versus gastroenteritis. There was no pancreatic mass or pancreatic inflammation identified, but he does have a lipase greater than 3000. Dr. Dang with General Surgery has been consulted and he has been started on IV fluids. Given the severe agitation, he was given 20 mg of Geodon and during examination was quite sedate, which made him a poor historian. PAST MEDICAL HISTORY: 1. Hypertension. 2. Hyperlipidemia. 3. BPH. 4. History of colon cancer with chemo and radiation and rectal cancer in remission. Had to have a colon resection with colostomy placement. 5. Emphysema. 6. Schizoaffective disorder, bipolar type. PAST SURGICAL HISTORY: 1. Colon resection with colostomy. 2. Left knee repair. 3. Right finger repair. SOCIAL HISTORY: He used to smoke, but he quit smoking at the age of 26. He denies alcohol or illicit drug use. Apparently, he used to be a reformed alcohol user. He is , disabled, lives alone. FAMILY HISTORY: Mother had stroke and heart attack. Father had a heart attack. REVIEW OF SYSTEMS: Unable to obtain. PHYSICAL EXAMINATION: VITAL SIGNS: Temperature 97.5 degrees, heart rate 87, respiratory rate 15, blood pressure 144/77, O2 saturation 97% on room air. GENERAL: Mr. Daron Omalley is a 58-year-old male he is in no acute distress. He is actually sedate from the Geodon he received. He is verbal and will temporarily open his eyes before going right back to sleep. HEENT: Atraumatic, normocephalic. Pupils are equal and reactive. Mucous membranes are dry. NECK: Trachea midline. CARDIOVASCULAR: S1, S2. Regular rate and rhythm. No rubs, gallops, murmurs. No lower extremity edema. +2 dorsalis and radial pulses. Negative JVD or carotid bruits. PULMONARY: Clear to auscultation, bilateral breath sounds. No accessory muscle use or work of breathing noted. ABDOMEN: Soft. Tender in all 4 quadrants. Positive bowel sounds x4. EXTREMITIES: Moves all extremities before going right back to sleep. NEUROLOGIC: Oriented to name, but would not stay awake long enough for full questions. SKIN: Warm, dry, intact but jaundiced in color. LABORATORY DATA: White blood cells 12,000, hemoglobin 12, hematocrit 38, platelet count 317,000. Sodium 139, potassium 2.8, BUN 22, creatinine 0.7, glucose 146, calcium is 9.8. Bilirubin is 4.87, AST 445, ALT 525, albumin 3.6. Lipase greater than 3000. Lactate 0.6. TSH 1.23. Urinalysis: Trace protein, small bilirubin, positive urobilinogen. Salicylates less than 3. Tylenol 1.4. Alcohol 0. IMAGING: Chest x-ray: Stable borderline cardiomegaly, mild basilar subsegmental atelectasis. No acute disease. Abdominal pelvic CT: No pancreatic mass or pancreatic inflammation identified. Distended gallbladder, biliary ductal dilatation. Small calcified gallstones in the gallbladder and at distal common bile duct or ampulla of Vater. Mildly thickened gallbladder calhoun with hazy external margins and mild pericholecystic inflammation. Acute cholecystitis could not be excluded. There is mild ileus versus gastroenteritis. No obvious appendicitis. Stable presacral soft tissue thickening and scarring. Resolution of the previously identified fluid contained lesion at the right. There is some small residual soft-tissue thickening in this area. ASSESSMENT AND PLAN: 1. Acute choledocholithiasis with acute pancreatitis and elevated liver enzymes with a jaundice appearance. Dr. Dang notified of CT scan results. We will make him n.p.o. Give him IV fluids, treating him with antiemetics, went ahead and started him on Flagyl and Levaquin. 2. Mild ileus versus gastroenteritis. Again, he is n.p.o. and he is on antibiotics. 3. Hypertension, currently stable. Will add medications once he can start taking p.o. and may add p.r.n. hydralazine if needed. 4. Gastroesophageal reflux disease, IV Protonix. 5. BPH. He was on Flomax at home. 6. Bipolar disorder, schizoaffective disorder. Once home medications are reconciled, we will try to get that resumed. 7. Deep venous thrombosis prophylaxis. SCDs. Dictated by JIMI Espinal for Berny Patino MD cc: JIMI Espinal MD
--- NOTE | 2019-02-10 15:29 | HISTORY AND PHYSICAL ---
SUMMARY OF ADMISSION: See full details done by JIMI Espinal. HISTORY OF PRESENT ILLNESS: Mr. Omalley has no primary care physician. Actually, he reported none, but he is followed by Dr. Yefri Constantino, I believe. He had abdominal pain, nausea, and vomiting which brought him over here. A 58-year-old male with a past medical history of hyperlipidemia, hypertension, benign prostatic hypertrophy, colon cancer, colostomy, emphysema, along with psychiatric conditions consistent with schizoaffective disorder, bipolar type. Brought to the EMS saying he was vomiting at home. Vomited in the ambulance on the ride over here. On evaluation in the emergency room, he was jaundice appearing and quite agitated. He had some abdominal pain and nausea and vomiting he was experiencing despite psychiatric issues. He had an abdominal and pelvic CT performed which revealed distended gallbladder and biliary dilatation. Also showed small calcific gallstones in the gallbladder, distal common bile duct. There were mild thickened gallbladder calhoun with hazy external margins and mild pericholecystic inflammation revealing acute cholecystitis. So, he could have a mild ileus versus gastroenteritis. There was no pancreatic mass or pancreatic inflammation identified. Lipase is greater than 3000 Dr. Dang, general surgeon, consulted. Gave some IV fluids. Gave him 20 mg of Geodon because of his agitation. PAST MEDICAL HISTORY: Again reviewed. 1. Hypertension. 2. Hyperlipidemia. 3. Benign prostatic hypertrophy. 4. History of colon cancer with chemotherapy and radiation and rectal cancer which is in remission. Did have a colon resection and colostomy placement. 5. Emphysema. 6. Schizoaffective disorder bipolar type. PAST SURGICAL HISTORY: 1. Colon resection and colostomy. 2. Left knee repair. 3. Right finger repair. IMPRESSION/PLAN: 1. Admitted with choledocholithiasis and acute pancreatitis, elevated liver enzymes, and jaundice appearance. Giving him IV fluids and antiemetics, and he is on Flagyl and Levaquin. 2. Mild ileus versus gastroenteritis. Continue present antibiotics and IV fluid. 3. Hypertension, currently stable. 4. Gastroesophageal reflux. We are giving him IV Protonix. 5. Benign prostatic hypertrophy. He is on Flomax at home. We will continue that. He did have bladder distention. We are going to place a Cintron catheter. He is complaining of inability to void. 6. Bipolar disorder, schizoaffective disorder. We will try and continue his current medications. 7. Deep venous prophylaxis. We will use SCDs. 8. He is on normal saline at 125 mL an hour. Getting Flagyl 500 mg, got 1 dose in the emergency room. He will get 500 mg IV q.6; and Levaquin, he is getting 750 mg IV daily. LABORATORY DATA: Review of his lab. White count 12,160, hematocrit 38, platelet count 317,000. Electrolytes and chemistries: His potassium is 2.8, and I think we have supplemented that. Creatinine is 0.7. cc: Berny Patino MD
--- NOTE | 2019-02-10 16:25 | GENERAL SURGERY CONSULTATION ---
DATE: 02/10/2019 REQUESTING PHYSICIAN: Hospitalist. CONSULT CONCERNING: Choledocholithiasis and biliary pancreatitis. HISTORY OF PRESENT ILLNESS: A 58-year-old gentleman with significant surgical history including abdominoperineal resection and schizoaffective disorder, presenting now with abdominal pain, nausea, vomiting. The patient was seen in the emergency department somewhat difficult exam by the emergency department but they did get a CT scan that showed distended gallbladder, dilation of the biliary tract and stones, there is also elevation his lipase. He apparently was combative and got Geodon and now is very severely sedated. He cannot give much more information than that given his sedation from the medication. I was asked to weigh an opinion. He does wake up enough to say he is not hurting as much. He is somewhat jaundice. PAST MEDICAL HISTORY: Includes hypertension, hyperlipidemia, BPH, history of colon cancer status post chemo radiation, emphysema, schizoaffective disorder bipolar type. PAST SURGICAL HISTORY: 1. Includes abdominoperineal resection with end colostomy. 2. Left knee repair. 3. Right finger repair. SOCIAL: Former smoker. FAMILY HISTORY: Positive for stroke and heart attack. ALLERGIES: Penicillins, codeine, Benadryl. HOME MEDICATION: Prilosec, potassium, Flomax, vitamin D, albuterol, methylprednisolone. REVIEW OF SYSTEMS: A full 14 systems were reviewed, it is difficult to obtain secondary to patient's sedation. PHYSICAL EXAMINATION: Vital Signs: Patient is currently afebrile. Vital signs are stable. General: No acute distress resting. HEENT: Normocephalic, atraumatic. Pupils equal, round, reactive to light. Some scleral icterus noted. Mucous membranes moist. Oropharynx benign. Neck: Supple. Trachea midline. Cardiovascular: Regular rate and rhythm. Lungs: Grossly clear. Abdomen: Soft. Maybe some mild discomfort in the right upper quadrant but no peritoneal signs. Extremities: Moves all extremities. Neurologic: Grossly intact. Skin: Positive for jaundice. Vascular: All extremities perfused. LABORATORY: White blood count is 12, hematocrit 38, platelet count is normal. Bilirubin is 4.8, AST, ALT and alkaline phosphatase are all elevated, lipase over 3000. CT scan independently reviewed and radiology report reviewed. ASSESSMENT AND PLAN: A 58-year-old gentleman with biliary pancreatitis and likely acute choledocholithiasis. Acute choledocholithiasis with biliary pancreatitis. At this time agree with resuscitation, antibiotics. Will need to see what his labs do in the morning. May need consider ERCP. Agree with start him on Flagyl and Levaquin, may need surgical intervention. It looks like he has had abdominal perineal resection with a lower midline incision we might still be able to remove his gallbladder laparoscopically but will follow up with labs tomorrow and continue to resuscitate him today. cc: Kirit Dang MD
[2019-02-10] MEDS: FLAGYL 500 MG/NS 500 MG/100 ML IVPB IV SCH ×2 (19:21→22:15)
[2019-02-10] MEDS: MORPHINE IV PRN (22:15)
[2019-02-11] MEDS: MORPHINE IV PRN (01:56)
[2019-02-11] MEDS: FLAGYL 500 MG/NS 500 MG/100 ML IVPB IV SCH ×5 (04:44→22:39)
[2019-02-11 06:19] LABS: BASO# 0.01 X1000 (0.0-0.2); BASO% 0.2 % (0.0-0.8); EOS# 0.49 X1000 (0.0-0.7); HEMATOCRIT 35.3 % (42.0-52.0); HEMOGLOBIN 11.4 g/dL (14.0-18.0); IMM GRAN# 0.02 X1000 (0.0-0.04); IMM GRAN% 0.3 % (0.0-0.5); LYMPH# 0.57 X1000 (1.2-3.4); LYMPH% 9.3 % (20.5-51.1); MCH 28.4 PG (27-31); MCHC 32.3 g/dL (33-37); MONO# 0.23 X1000 (0.11-0.59); MONO% 3.7 % (1.7-9.3); MPV 9.9 FL (7.4-10.4); NEUT# 4.82 X1000 (1.4-6.5); NEUT% 78.5 % (42.2-75.2); PLT 288 X1000 (130-400); RBC 4.01 XMIL (4.7-6.1); RDW 14.3 % (11.5-14.5); WBC 6.14 X1000 (4.8-10.8)
[2019-02-11 06:49] LABS: AGAP 12; ALB/GLOB RATIO 1.1; ALBUMIN 3.3 g/dL (3.5-5.0); ALKALINE PHOSPHATASE 587 U/L (32-122); BUN 23 mg/dL (8-22); CALCIUM 9.3 mg/dL (8.8-10.2); CHLORIDE 106 mmol/L (98-107); COSMO 292; CREATININE 0.8 mg/dL (0.7-1.2); ESTIMATED GFR > 60; GLUCOSE 92 mg/dL (70-104); GOT 232 U/L (10-34); GPT 379 U/L (10-44); MAGNESIUM 1.7 mg/dL (1.5-2.7); SODIUM 145 mmol/L (136-145); TCO2 27 mmol/L (25-35); TOTAL BILIRUBIN 6.28 mg/dL (0.20-1.00); TOTAL PROTEIN 6.4 g/dL (6.3-8.3)
--- NOTE | 2019-02-11 07:18 | EKG Report ---
Test Performed on : 02/10/2019 08:29:31 AM Test Reason : vomiting Blood Pressure : / mmHG Vent. Rate : 076 BPM Atrial Rate : 076 BPM P-R Int : 150 ms QRS Dur : 086 ms QT Int : 382 ms P-R-T Axes : 045 008 077 degrees QTc Int : 429 ms Normal sinus rhythm. Cannot rule out Inferior infarct , age undetermined Abnormal ECG When compared with ECG of 03-FEB-2019 03:43, (Unconfirmed) Minimal criteria for Inferior infarct are now present Unconfirmed Result
--- NOTE | 2019-02-11 08:00 | GENERAL SURGERY PROGRESS NOTE ---
DATE: 02/11/2019 SUBJECTIVE: The patient is doing okay. OBJECTIVE: Vital Signs: The patient is currently afebrile. His vital signs are stable. General: No acute distress. HEENT: Normocephalic, atraumatic. Pupils equal, round, reactive to light. Mucous membranes moist. Oropharynx benign. Neck: Supple. Trachea midline. Cardiovascular: Regular rate and rhythm. Lungs: Grossly clear. Abdomen: Soft. Some mild discomfort in the epigastric and right upper quadrant, but no peritoneal signs. Extremities: Moves all extremities. Neurologic: Grossly intact. Skin: Difficult to assess jaundice at this time. LABORATORY DATA: White blood cell count is down to 6, hematocrit 35, platelet count 288,000. CMP is currently pending. ASSESSMENT AND PLAN: A 58-year-old gentleman with choledocholithiasis and biliary pancreatitis. At this time, will keep him nothing by mouth. Will follow up with his morning labs. He is improving, but I think we will probably need to give him a couple of days to get his pancreatitis resolved. He may need endoscopic retrograde cholangiopancreatography first, but will follow up with his labs. cc: Kirit Dang MD
[2019-02-11] MEDS: HALDOL IV PRN ×2 (09:56→15:51)
[2019-02-11] MEDS: LEVAQUIN 750 MG/D5W 750 MG/150 ML IVPB IV SCH ×2 (11:50→12:00)
[2019-02-11] MEDS ORDERED: STERILE WATER INJ. INJ PRN (17:42)
[2019-02-11] MEDS ORDERED: GEODON IM PRN (17:42)
--- NOTE | 2019-02-11 18:03 | PROGRESS NOTE ---
DATE: 02/11/2019 ADDENDUM: He has got choledocholithiasis suspected with pancreatitis so I am going to put him on clear liquids since he is hungry and requesting food, and that may help with his agitation. We will see if we can try and get some records of his medication at home. We will use [facility] mtz for now. cc: Berny Patino MD
--- NOTE | 2019-02-11 18:12 | PROGRESS NOTE ---
DATE: 02/11/2019 SUBJECTIVE: Mr. Omalley was admitted yesterday with abdominal pain, nausea and vomiting, patient of Dr. Yefri Constantino, a 58-year-old with medical history of hyperlipidemia, hypertension, benign prostatic hypertrophy, colon cancer status post colectomy and then colostomy, emphysema along with history of psychiatric condition consistent with psychoaffective disorder and bipolar type. Brought in by EMS yesterday, was vomiting at home, vomited in the ambulance. He was reported to appear jaundiced and quite agitated in the emergency room. He was quite agitated and having nausea at the same time. This morning was agitated, did not sleep much, and he wanted to eat and so he was upset and was apparently coming at the hospital staff. We gave him some Haldol, and he required restraints for a while. OBJECTIVE: Vital signs: Temperature is 98.2 degrees, pulse 75, respirations 22, blood pressure 164/72. HEENT: Pupils are equal. Lungs: Clear in all lung adkins. Cardiovascular: Regular rhythm and rate without murmur or S3. Abdomen: Soft. Skin: Warm and dry. Urine output is 2000 mL today. Yesterday. Urine output was 4600 mL. ASSESSMENT AND PLAN: 1. Suspect choledocholithiasis, biliary pancreatitis, significant surgical history, abdominoperineal resection with colonic with end-colostomy, and they are hoping to do a radiographic study this morning. 2. Schizoaffective disorder, bipolar type. We are not sure of what medicines he is taking at home. We did give him some Haldol. Ativan seems to help. He is on empiric antibiotics using Levaquin. Apparently, he is hungry, getting normal saline at 125 mL an hour so I think I will feed him a regular diet. cc: Berny Patino MD
--- NOTE | 2019-02-11 18:54 | GASTROENTEROLOGY CONSULTATION ---
DATE: 02/11/2019 REASON FOR CONSULTATION: Elevated liver function tests, elevated amylase and lipase, abnormal CT scan. HISTORY OF PRESENT ILLNESS: This is a 58-year-old male who was admitted to the hospital with nausea, vomiting and was brought into the emergency room and noted to be jaundiced. CT scan had showed distended gallbladder and biliary ductal dilatation along with small calcified gallstones in the gallbladder and at the distal common bile duct/ampulla of Vater, also noted mild thickening gallbladder cal[place] with hazy margins with possible acute cholecystitis and also findings of mild ileus versus gastroenteritis. At the time of my evaluation patient was in restraints. Apparently he had become combative. He was given Geodon and is currently sedated and there is a nurse tech at the bedside. Patient slightly aroused during my evaluation and nodded yes and no to some of my questions but did not speak at the time of my evaluation, there is no family available. Patient's nurse states they have been unable to reach any family members. I believe patient may live by himself. 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 We have never seen the patient in our office. As noted at the time of my visit, patient has been sedated. He is currently in no acute distress. He did arouse slightly and nodded his head to some questions but was nonverbal with review of systems. Most of the information is obtained from the chart. PAST MEDICAL HISTORY: Hypertension, hyperlipidemia, BPH, history of rectal adenocarcinoma status post resection with colostomy and received chemo and radiation, emphysema, schizoaffective disorder/bipolar type. PAST SURGICAL HISTORY: 1. Rectal resection with end colostomy. 2. Left knee repair. 3. Right finger repair. ALLERGIES: Penicillin causing nausea, Benadryl causing hives, codeine causing nausea. HOME MEDICATIONS: From chart show albuterol inhaler every 6 hours as needed, vitamin 2000 units daily, Medrol dose pack as directed, Prilosec 40 mg daily, potassium 10 mEq daily, Flomax 0.4 mg daily. SOCIAL HISTORY: Previous smoker quit at age of 26, no reported alcohol or illicit drug use. History of alcohol use from the chart. He is a , disabled, lives alone per chart report. FAMILY HISTORY: Mother had stroke and heart attack. Father had heart attack. REVIEW OF SYSTEMS: Unable to obtain. Information is obtained from the chart.Vital signs: Temperature 98.2 degrees, pulse 75, respirations 22, blood pressure 164/72. General: The patient was sedated in restraints at the time my visit, he did arouse slightly to stimulus and nodded yes or no to several of my questions but did not speak, there was a nurse tech at the bedside. HEENT: Normocephalic, atraumatic. Pupils equal, round, reactive to light. Skin slightly jaundice. Cardiovascular: Regular rate and rhythm. Respiratory: Lung sounds essentially clear. Abdomen: Soft. No real tenderness at the time of my evaluation but again patient was sedated, positive bowel sounds. Extremities: Lower extremity edema noted. Neurological: Patient is sedated. He did open his eyes and shook his head yes or no to some questions. LABORATORY: Hematology. WBC 6.14, hemoglobin 11.4, hematocrit 35.3, MCV 88.0, platelet 288,000. Chemistry. Sodium 145, potassium 3.0, chloride 106, CO2 27, BUN 23, creatinine 0.8, glucose 92, calcium 9.3, magnesium 1.7, total bilirubin 6.28, AST 232, ALT 379, alkaline phosphatase 587, albumin 3.3, lipase on 02/10/2019 was greater than 3000, TSH 1.23. ASSESSMENT AND PLAN: 1. Pancreatitis. 2. Cholelithiasis and choledocholithiasis. We will repeat liver enzymes and amylase and lipase tomorrow. Patient has been started on antibiotic. 3. Other medical problems hypertension, gastroesophageal reflux disease, benign prostatic hypertrophy, history of colorectal cancer with colostomy. Continue current medications. Continue PPI. We have been asked to see the patient for possible ERCP. We will repeat his liver function test along with amylase and lipase in the morning. Keep NPO for now. Further plans to be made as needed. We may end up doing the ERCP on Monday. Again further plans will be made as needed. I have discussed this case with Dr. Tiwari. Thank you for this consultation. Dictated by JIMI Loya for Davie Tiwari MD cc: JIMI Romo MD [facility]
[2019-02-12] MEDS: MORPHINE IV PRN ×4 (01:54→20:32)
[2019-02-12] MEDS: FLAGYL 500 MG/NS 500 MG/100 ML IVPB IV SCH ×4 (05:09→23:30)
[2019-02-12 06:15] LABS: EOS# 0.43 X1000 (0.0-0.7); HEMATOCRIT 36.1 % (42.0-52.0); HEMOGLOBIN 11.4 g/dL (14.0-18.0); IMM GRAN# 0.02 X1000 (0.0-0.04); IMM GRAN% 0.4 % (0.0-0.5); LYMPH# 0.65 X1000 (1.2-3.4); LYMPH% 12.1 % (20.5-51.1); MCH 27.9 PG (27-31); MCHC 31.6 g/dL (33-37); MCV 88.5 FL (81-99); MONO# 0.29 X1000 (0.11-0.59); MONO% 5.4 % (1.7-9.3); NEUT# 3.99 X1000 (1.4-6.5); NEUT% 74.1 % (42.2-75.2); PLT 276 X1000 (130-400); RBC 4.08 XMIL (4.7-6.1); RDW 14.7 % (11.5-14.5); WBC 5.38 X1000 (4.8-10.8)
[2019-02-12 06:29] LABS: AMYLASE 164 U/L (20-200); LIPASE 255 U/L (13-60)
[2019-02-12 06:42] LABS: AGAP 13; ALB/GLOB RATIO 1.7; ALBUMIN 3.7 g/dL (3.5-5.0); ALKALINE PHOSPHATASE 633 U/L (32-122); BUN 26 mg/dL (8-22); CHLORIDE 104 mmol/L (98-107); COSMO 296; CREATININE 0.7 mg/dL (0.7-1.2); ESTIMATED GFR > 60; GLUCOSE 137 mg/dL (70-104); GOT 127 U/L (10-34); GPT 295 U/L (10-44); POTASSIUM 3.1 mmol/L (3.5-5.1); SODIUM 145 mmol/L (136-145); TCO2 28 mmol/L (25-35); TOTAL BILIRUBIN 2.28 mg/dL (0.20-1.00); TOTAL PROTEIN 5.9 g/dL (6.3-8.3)
[2019-02-12] MEDS: LEVAQUIN 750 MG/D5W 750 MG/150 ML IVPB IV SCH (12:11)
--- NOTE | 2019-02-12 13:27 | GENERAL SURGERY PROGRESS NOTE ---
DATE: 02/12/[address] Tiwari who will evaluate the patient for a potential ERCP. The bilirubin had gone up yesterday. The patient is, by report, less agitated but we will continue to monitor. Hopefully, he can have an ERCP and then consider surgical intervention on his gallbladder in the near future. cc: Kirit Dang MD
[2019-02-12] MEDS ORDERED: VENTOLIN HFA INH PRN (14:09)
[2019-02-12] MEDS ORDERED: EFFEXOR PO ONE (16:00)
--- NOTE | 2019-02-12 18:03 | PROGRESS NOTE ---
DATE: 02/12/2019 SUBJECTIVE: The patient is doing well. He has had some issues with altered mental status. Apparently was crawling on the floor like a cat and meowing like a cat yesterday. Today seems in better mind, but there is obviously underlying psychiatric issues. OBJECTIVE: Vital Signs: Blood pressure is 165/81, heart rate of 72, respiratory rate of 15, temperature 98.5 degrees, 98% on 2 L. Cardiovascular: Regular rate and rhythm. Pulmonary: Bilateral breath sounds clear to auscultation. Gastrointestinal: Soft, nontender, nondistended. Bowel sounds are positive. LABORATORY STUDIES: White count 5, hemoglobin and hematocrit of 11 and 36, platelets of 276,000. Potassium 3.1. Total bilirubin is down to 2.2, AST and ALT of 127 and 295. Lipase is down too. PROBLEM LIST: 1. Choledocholithiasis, but associated with pancreatitis, so he is going to get an ERCP tomorrow and we will follow up on the results. 2. History of colon cancer. Continue treatments. 3. Schizoaffective disorder. He is supposed to be Effexor and Abilify, so we will make sure he gets back on those because he has not been on any medications for a little while now. He is empirically on antibiotics. DISPOSITION: Pending clinical status. If he is still having altered mentation, we will get a psychiatric evaluation although they have been out of beds for a bit now. cc: Og Mello MD
--- NOTE | 2019-02-12 19:33 | GASTROENTEROLOGY PROGRESS NOTE ---
DATE: 02/12/2019 SUBJECTIVE: Patient is more awake today. He is sitting up, eating a clear liquid lunch at the time of my visit. He currently denies abdominal pain. OBJECTIVE: Vital Signs: Temperature 98.5 degrees, pulse 72, respirations 16, blood pressure 165/81. General: Patient is awake, alert, no acute distress. Abdomen: Soft, nontender. LABORATORY: Hematology. WBC 5.38, hemoglobin 11.4, hematocrit 36.1, MCV 88.5, platelet 276,000. Chemistry. Sodium 145, potassium 3.1, chloride 104, CO2 28, BUN 26, creatinine 0.7, glucose 137, total bilirubin 2.28, AST 127, ALT 295, alkaline phosphatase 633, amylase 164, lipase 255. ASSESSMENT AND PLAN: 1. Pancreatitis. Cholelithiasis and choledocholithiasis. We will plan for ERCP on Monday. I have discussed the procedure along with benefits and risks with the patient. Further plans will be made as needed. Patient is also being followed by Dr. Dang and will most likely have cholecystectomy towards the end of the week. I have discussed this case with Dr. Tiwari. Dictated by JIMI Loya for Davie Tiwari MD cc: JIMI Romo MD
[2019-02-12] MEDS: PRAVACHOL PO SCH (20:32)
[2019-02-12] MEDS: MELATONIN PO SCH (20:32)
[2019-02-12] MEDS: DESYREL PO SCH (20:32)
[2019-02-12] MEDS: ABILIFY PO SCH (20:32)
[2019-02-13] MEDS: FLAGYL 500 MG/NS 500 MG/100 ML IVPB IV SCH ×5 (00:55→23:25)
[2019-02-13] MEDS: MORPHINE IV PRN ×3 (01:22→09:22)
[2019-02-13 06:40] LABS: BASO# 0.01 X1000 (0.0-0.2); BASO% 0.2 % (0.0-0.8); EOS# 0.52 X1000 (0.0-0.7); EOS% 11.2 % (0.0-10.0); HEMATOCRIT 36.5 % (42.0-52.0); HEMOGLOBIN 11.5 g/dL (14.0-18.0); IMM GRAN# 0.02 X1000 (0.0-0.04); IMM GRAN% 0.4 % (0.0-0.5); LYMPH# 0.85 X1000 (1.2-3.4); LYMPH% 18.2 % (20.5-51.1); MCH 28.1 PG (27-31); MCHC 31.5 g/dL (33-37); MCV 89.2 FL (81-99); MONO# 0.26 X1000 (0.11-0.59); MONO% 5.6 % (1.7-9.3); NEUT% 64.4 % (42.2-75.2); PLT 259 X1000 (130-400); RBC 4.09 XMIL (4.7-6.1); RDW 14.5 % (11.5-14.5); WBC 4.66 X1000 (4.8-10.8)
[2019-02-13 07:14] LABS: AGAP 9; ALB/GLOB RATIO 1.4; ALBUMIN 3.7 g/dL (3.5-5.0); ALKALINE PHOSPHATASE 503 U/L (32-122); BUN 16 mg/dL (8-22); CHLORIDE 101 mmol/L (98-107); COSMO 280; CREATININE 0.6 mg/dL (0.7-1.2); ESTIMATED GFR > 60; GLUCOSE 92 mg/dL (70-104); GOT 70 U/L (10-34); GPT 209 U/L (10-44); MAGNESIUM 1.7 mg/dL (1.5-2.7); SODIUM 140 mmol/L (136-145); TCO2 30 mmol/L (25-35); TOTAL BILIRUBIN 1.47 mg/dL (0.20-1.00); TOTAL PROTEIN 6.3 g/dL (6.3-8.3)
[2019-02-13] MEDS: PRINZIDE 10/12.5MG PO SCH (09:16)
[2019-02-13] MEDS: POTASSIUM CHLORIDE 20 MEQ/SWI 20 MEQ/100 ML IVPB IV SCH ×2 (12:30→15:10)
--- NOTE | 2019-02-13 13:09 | GENERAL SURGERY PROGRESS NOTE ---
DATE: 02/13/2019 SUBJECTIVE: Patient says he is doing a little bit better, seems more alert today. OBJECTIVE: Vital Signs: Patient is currently afebrile. His vital signs stable. General: No acute distress. Cardiovascular: Regular rate and rhythm. Lungs: Grossly clear. Abdomen: Soft. No real tenderness today. Extremities: Moves all extremities. Neurologic: Grossly intact. Skin: No signs of jaundice. Vascular: All extremities perfused. LABORATORY: Reviewed from this morning: White blood count 4, hematocrit 35, and platelet count 259,000. On previous days his bilirubin had been trending down, although his alkaline phosphatase has remained stable. ASSESSMENT AND PLAN: A 58-year-old gentleman with likely choledocholithiasis: Choledocholithiasis. At this time, it looks like he is on the schedule for an ERCP today. We will follow up with the results. cc: Kirit Dang MD
[2019-02-13] MEDS: LEVAQUIN 750 MG/D5W 750 MG/150 ML IVPB IV SCH (13:29)
--- NOTE | 2019-02-13 14:42 | PROGRESS NOTE ---
DATE: 02/13/2019 SUBJECTIVE: The patient has no major complaints. OBJECTIVE: Vital Signs: Blood pressure is 146/95, heart rate of 86, respiratory rate 18, temperature 97.4 degrees, saturating 99% on room air. Cardiovascular: Regular rate and rhythm. Pulmonary: Bilateral breath sounds. Clear to auscultation. GI: Soft, nontender, nondistended. Bowel sounds are positive. LABORATORY DATA: White count 4.6, hemoglobin and hematocrit 11 and 36, platelets 259,000. Potassium is 3. AST and ALT are down to 70 and 209. PROBLEM LIST: 1. Choledocholithiasis. Plan is for an endoscopic retrograde cholangiopancreatography today, and will see how he does subsequently. 2. Pancreatitis secondary to choledocholithiasis. He seems to be better. Will advance his diet once we get him status post endoscopic retrograde cholangiopancreatography. 3. Schizoaffective. We will continue his treatments. He is back on Effexor, and he seems to be doing better. He is also on Abilify. 4. Disposition. Pending clinical status. I think he is probably stable to go to the floor. cc: Og Mello MD
[2019-02-13] MEDS ORDERED: XYLOCAINE-MPF 2% ONE (15:49)
[2019-02-13] MEDS ORDERED: DIPRIVAN 1% ONE ×2 (15:49)
--- NOTE | 2019-02-13 16:36 | ENDOSCOPY OPERATIVE NOTE ---
[facility] ENDOSCOPY OPERATIVE NOTE , ERCP PROCEDURE REPORT EXAM DATE: 02/13/2019 PATIENT NAME: Daron Omalley MR #: [id number] BIRTHDATE: 1960 ATTENDING: Davie Tiwari MD STATUS: inpatient [employer] INST[employer]ER: Nesha Tapia, Belén Wright, and Yasmani Browne INDICATIONS: The patient is a 58 yr old male here for an ERCP due to abdominal pain of suspected etta iary origin, established bile duct stone(s), abnormal liver function test, and Gall stone pancreatitis.. PROCEDURE PERFORMED: ERCP with sphincterotomy/papillotomy ERCP with stent placement MEDICATIONS: Per Anesthesia CONSENT: The patient understands the risks and benefits of the procedure and understands that these r isks include, but are not limited to: sedation, allergic reaction, infection, perforation and/or bleeding. Alternative means of evaluation and treatment include, among others: physical exam, x-rays, and/or surgical intervention. The patient elects to proceed with this endoscopic procedure. HISTORY AND PHYSICAL: 02/13/2019 DESCRIPTION OF PROCEDURE: During intra-op preparation period all mechanical and medical equipment was checked for proper function. Hand hygiene and appropriate measures for infection prevention was taken. After the risks, benefits and alternatives of the procedure were thoroughly explained, Informed was verified, confirmed and timeout was successfully executed by the treatment team. With the patient in left semi-prone position, medications were admini stered intravenously.The [id number] ([id number]) was passed from the mouth into the esophagus and further advanc ed from the esophagus into the stomach. From stomach scope was directed to the second portion of the duodenum. M ajor papilla was aligned with the duodenoscope. The scope position was confirmed fluoroscopically. Rest of the finding s/therapeutics are given below. The scope was then completely withdrawn from the patient and the procedure completed. Th e pulse, BP, and O2 saturation were monitored and documented by the physician and the nursing staff throughout the ent lianna procedure. The patient was cared for as planned according to standard protocol. The patient was then discharged to [facility] in stable condition and with appropriate post procedure care. ERCP: A packaging supervisor film prior to endoscope insertion appeared normal. The Major Papilla was located in t he second portion of the duodenum. The papilla was adjacent to a small diverticulum. Bile duct cannulation was attem pted using the sphincterotome with guidewire. Cannulation of the bile duct was performed with ease. Deep cannulati on was successfully achieved. The cholangiogram revealed a filling defect in the major papilla. With jose dewire within the bile duct, a biliary sphincterotomy was performed. A stone extraction was attempted using a stone e xtraction balloon. Multiple stone fragments were removed from the bile duct. Under endoscopic and fluoroscopic guidanc e, a 10Fr X 5cm stent was placed in the bile duct. ADVERSE EVENT: There were no complications. IMPRESSIONS: 1. Common bile duct stone(s) 2. S/p sphincterotomy and extract. 3. Plastic stent placement RECOMMENDATIONS: 1. Repeat liver function test in 1 day(s) 2. Disposition 3. Return to floor when standard parameters are met 4. Resume current medications 5. Start Clear liquid diet for 1 Day(s) REPEAT EXAM: Return in 4 weeks for ERCP. Davie Tiwari MD eSigned: Davie Tiwari MD 02/13/2019 4:36 PM cc: Kirit Dang MD PATIENT NAME: Daron Omalley MR#: [id number]
--- NOTE | 2019-02-13 16:40 | Diag Imaging Result Doc PS360 ---
EXAM: ERCP-BILIARY AND PANCREATIC 02/13/2019 HISTORY: cbd stones/obstruction TECHNIQUE: Two views COMMENT: There is a stent placed in the common bile duct. There is poor visualization of the distal portion of the duct or the common hepatic duct. IMPRESSION: Common bile duct stent. Electronically signed by Sven Mirza 02/13/2019 4:38 PM
[2019-02-13] MEDS: EFFEXOR XR PO SCH (17:11)
[2019-02-13] MEDS: KLOR-CON PO SCH (17:11)
[2019-02-13] MEDS: FLOMAX PO SCH (17:11)
[2019-02-13] MEDS: PRILOSEC PO SCH (17:11)
[2019-02-13] MEDS: ABILIFY PO SCH (20:32)
[2019-02-13] MEDS: PRAVACHOL PO SCH (20:32)
[2019-02-13] MEDS: DESYREL PO SCH (20:32)
[2019-02-13] MEDS: MELATONIN PO SCH (20:32)
[2019-02-14] MEDS: FLAGYL 500 MG/NS 500 MG/100 ML IVPB IV SCH ×2 (04:37→12:30)
[2019-02-14 05:51] LABS: EOS# 0.41 X1000 (0.0-0.7); EOS% 8.9 % (0.0-10.0); HEMATOCRIT 36.9 % (42.0-52.0); HEMOGLOBIN 11.9 g/dL (14.0-18.0); LYMPH# 0.83 X1000 (1.2-3.4); MCH 28.7 PG (27-31); MCHC 32.2 g/dL (33-37); MCV 89.1 FL (81-99); MONO% 6.5 % (1.7-9.3); MPV 9.9 FL (7.4-10.4); NEUT# 3.08 X1000 (1.4-6.5); NEUT% 66.6 % (42.2-75.2); PLT 228 X1000 (130-400); RBC 4.14 XMIL (4.7-6.1); RDW 14.1 % (11.5-14.5); WBC 4.62 X1000 (4.8-10.8)
[2019-02-14 06:11] LABS: AGAP 12; ALB/GLOB RATIO 1.2; ALBUMIN 3.5 g/dL (3.5-5.0); ALKALINE PHOSPHATASE 453 U/L (32-122); BUN 17 mg/dL (8-22); CALCIUM 9.4 mg/dL (8.8-10.2); CHLORIDE 99 mmol/L (98-107); COSMO 278; CREATININE 0.8 mg/dL (0.7-1.2); ESTIMATED GFR > 60; GLUCOSE 105 mg/dL (70-104); GOT 50 U/L (10-34); GPT 164 U/L (10-44); MAGNESIUM 1.9 mg/dL (1.5-2.7); POTASSIUM 3.3 mmol/L (3.5-5.1); SODIUM 138 mmol/L (136-145); TCO2 27 mmol/L (25-35); TOTAL BILIRUBIN 1.18 mg/dL (0.20-1.00); TOTAL PROTEIN 6.4 g/dL (6.3-8.3)
[2019-02-14] MEDS: PRILOSEC PO SCH (09:58)
[2019-02-14] MEDS: KLOR-CON PO SCH (09:58)
[2019-02-14] MEDS: EFFEXOR XR PO SCH (09:58)
[2019-02-14] MEDS: FLOMAX PO SCH (09:58)
[2019-02-14] MEDS: PRINZIDE 10/12.5MG PO SCH (09:59)
[2019-02-14] MEDS: LEVAQUIN 750 MG/D5W 750 MG/150 ML IVPB IV SCH (12:30)
--- NOTE | 2019-02-14 12:44 | GENERAL SURGERY PROGRESS NOTE ---
DATE: 02/14/2019 SUBJECTIVE: Patient is doing okay. He is not having any pain. He had his ERCP yesterday which showed common bile duct stones. He had a sphincterotomy and stent placement. He is not complaining of any pain right now. OBJECTIVE: Vital Signs: Patient is currently afebrile. His vital signs are stable. General: No acute distress. HEENT: Normocephalic, atraumatic. Pupils equal, round, reactive to light. Mucous membranes moist. Oropharynx benign. Neck: Supple. Trachea midline. Cardiovascular: Regular rate and rhythm. Lungs: Grossly clear. Abdomen: Soft, nontender at this time. Extremities: Moves all extremities. Neurologic: Grossly intact. Skin: No signs of jaundice. Vascular: All extremities perfused. LABORATORY DATA: White blood cell count is 4, hematocrit is 36, no left shift noted. Remainder of labs reviewed. Bilirubin has to continue to trend down. AST, ALT and alkaline phosphatase also are trending down. ASSESSMENT AND PLAN: A 58-year-old gentleman with likely choledocholithiasis. Choledocholithiasis. At this time, he is status post ERCP. Timing of his cholecystectomy may be difficult, likely cannot do in the next couple days. We could potentially do over the weekend with my partner doing it or we could evaluate him for outpatient surgery. At this point, patient is stable we could do either route. We will try to discuss further with the Hospitalist later today. cc: Kirit Dang MD
[2019-02-14] MEDS: FLAGYL PO SCH ×2 (17:25→22:39)
--- NOTE | 2019-02-14 19:54 | GASTROENTEROLOGY PROGRESS NOTE ---
DATE: 02/14/2019 SUBJECTIVE: The patient is sitting up on the side of the bed, eating his breakfast. He denies significant complaints today. He had an ERCP on 02/13/2019, findings showed common bile duct stones status post sphincterotomy and extraction with stent placement. The patient is currently tolerating a liquid diet. Liver function tests have improved slightly today. OBJECTIVE: Vital Signs: Temperature 97.8 degrees, pulse 84, respirations 15, blood pressure 138/83. General: The patient is awake, alert, in no acute distress. LABORATORY: Hematology: WBC 4.62, hemoglobin 11.9, hematocrit 36.9, MCV 89.1, platelets 228,000. Chemistry: Sodium 138, potassium 3.3, chloride 99, CO2 27, BUN 17, creatinine 0.8. Glucose 105, total bilirubin 1.18, AST 50, ALT 164, alkaline phosphatase 453. ASSESSMENT AND PLAN: 1. Cholelithiasis and choledocholithiasis. Endoscopic retrograde cholangiopancreatogram (ERCP) done with sphincterotomy, stone extraction, and stent placement. Liver function tests have improved slightly today. 2. Pancreatitis, improved. 3. Schizoaffective disorder. The patient does get agitated easily. Continue his current medications. PLAN: We will continue to follow his liver function tests. The patient will need repeat ERCP in 4 weeks to remove his stent. Further plans to be made according to his progress. Recommend following with [facility] on their further plan. I have discussed this case with Dr. Tiwari. Dictated by JIMI Loya for Davie Tiwari MD cc: JIMI Romo MD
[2019-02-14 20:32] VITALS: BP 120/79
[2019-02-14] MEDS: ABILIFY PO SCH (21:10)
[2019-02-14] MEDS: PRAVACHOL PO SCH (21:11)
[2019-02-14] MEDS: DESYREL PO SCH (21:11)
[2019-02-14] MEDS: MELATONIN PO SCH (21:11)
--- NOTE | 2019-02-17 09:03 | DISCHARGE SUMMARY ---
ADMISSION DATE: 02/10/2019 DISCHARGE DATE: 02/14/2019 DIAGNOSES: 1. Acute choledocholithiasis with acute pancreatitis and elevated liver enzymes. 2. Mild ileus, resolved. 3. History of colon cancer, aware. 4. Schizoaffective disorder, bipolar type. 5. Hypertension. 6. Gastroesophageal reflux disease. CONSULTANTS: 1. Dr. Tiwari. 2. Dr. Kirit Dang. DIAGNOSTICS: 1. CT of the abdomen and pelvis revealed a distended gallbladder and biliary ductal dilatation, some calcified stones in the gallbladder, mild ileus versus gastroenteritis. 2. Chest x-ray revealed stable borderline cardiomegaly, mild basilar subsegmental atelectasis. 3. On 02/13/2019, ERCP with sphincterotomy, papillotomy with stent placement. HOSPITAL COURSE: Mr. Omalley presented to the emergency room complaining of abdominal pain, nausea, and vomiting. He was found to have a lipase greater than 3000. Dr. Tiwari was consulted. He underwent ERCP with sphincterotomy, papillotomy, and stent placement, which he tolerated well. Diet was advanced to healthy heart, which he tolerated. The patient ultimately needs cholecystectomy. After discussion with Dr. Kirit Dang, it was decided that the patient could be discharged home and this could be scheduled on an outpatient basis. Liver functions have decreased with bilirubin peaking at 6.28 and on the day of discharge, it is 1.18, with AST, ALT, and alkaline phosphatase still elevated but decreasing. These will be followed by Dr. Tiwari on an outpatient basis. DISCHARGE VITAL SIGNS: Blood pressure is 120/79, with a heart rate of 88, respirations 20, temperature is 98.1 degrees oral, with room air saturations 99-100%. DISCHARGE PHYSICAL EXAMINATION: Cardiovascular: Regular rate and rhythm. S1 and S2 are appreciated. Peripheral pulses are palpable x4 extremities. Calves are nontender bilaterally. Pulmonary: Breath sounds are clear with no increased work of breathing noted. Chest rises and falls symmetrically with respiration. Gastrointestinal: Abdomen is soft, nontender, and nondistended with bowel sounds in all 4 quadrants. Neurologic: He is alert and oriented x3. DISCHARGE MEDICATIONS: 1. Abilify 5 mg p.o. at bedtime. 2. Trazodone 50 mg p.o. at bedtime. 3. Melatonin 5 mg p.o. at bedtime. 4. Effexor XR 150 mg p.o. daily. 5. Flomax 0.4 mg p.o. daily. 6. Potassium chloride 10 mEq p.o. daily. 7. Pravachol 40 mg p.o. daily. 8. Prilosec 40 mg p.o. daily. 9. Zestoretic 20/25 one p.o. daily. 10. Albuterol inhaler 2 puffs q.6 hours p.r.n. wheezing. 11. Flagyl 500 mg p.o. t.i.d. x7 days. 12. Levaquin 750 mg p.o. daily x7 days FOLLOWUP: 1. Dr. Tiwari in 4 weeks for removal of stent. He needs to call the office to schedule an appointment. 2. Dr. Kirit Dang on 02/25/2019 at 9:45 a.m. 3. He was instructed to call to be seen sooner or return to the ER for any syncope, dizziness, chest pain, palpitations, any nausea, vomiting, diarrhea, constipation, black or bloody vomitus or stools, any hematuria, dysuria, frequency, urgency, temperature greater than 101, recurring abdominal pain, skin or sclerae becoming yellow, or for any questions or concerns that he may have. He is being discharged home in stable condition with family members. TIME SPENT: This is a greater than 30 minute discharge. Dictated by JIMI Cueto for Kody Lopez MD Addendum: Patient seen and examined by myself. Agree with JIMI note. It reflects my assessment and plan. Patient is being discharged in stable condition. Will be seen by GI as above. cc: JIMI Cueto MD [facility]
== END 2019-02-14 23:15 | disposition home or self-care (01) | DRG 444 ==
LOC: ED 06:57 → EDIPHOLD 11:50 → SUATTDRO 11:50 → 2N 16:21
PROVIDERS: ATTEND Internal Medicine
PROC: EN.ERCP (2019-02-13 15:54)